=== PATIENT | female | born 1945 | race Caucasian/White ===

== ENCOUNTER 2023-10-19 12:19 | Emergency (ER) | payer MEDICARE, SELFPAY ==
--- NOTE | 2023-10-19 12:22 | XRR_ITS ---
PROCEDURE INFORMATION: Exam: XR Chest Exam date and time: 10/19/2023 12:44 PM Age: 78 years old Clinical indication: Shortness of breath; Patient HX: SOB and weakness x 1 wk; Additional info: Chest pain TECHNIQUE: Imaging protocol: Radiologic exam of the chest. Views: 1 view. COMPARISON: No relevant prior studies available. FINDINGS: Tubes, catheters and devices: Epidural electrodes seen in the midthoracic region. Lungs: Unremarkable. No consolidation. Pleural spaces: Unremarkable. No pleural effusion. No pneumothorax. Heart/Mediastinum: Unremarkable. No cardiomegaly. Bones/joints: [place] rightward midthoracic curvature. XR/XR chest 1V portable [id number] IMPRESSION: No acute findings.
--- NOTE | 2023-10-19 12:23 | ECG_ITS ---
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 Measurements Intervals [place] Rate: 87 P: 0 IN: 0 QRS: 26 QRSD: 93 T: 54 QT: 338 QTc: 407 Interpretive Statements ATRIAL FIBRILLATION MINIMAL ST DEPRESSION [0.025+ mV ST DEPRESSION] No previous ECG available for comparison Electronically Signed On 10-19-2023 16:51:19 CDT by Mark Duron M.D. [email or web address] Clinical Analyticsmercy health st. elizabeth youngstown hospitalCorefino/store/OM/[id number]
[2023-10-19 12:27] VITALS: BP 158/105; PULSE 76; RESP 23; TEMP 36.9; O2SAT 99; BMI 24.0
[2023-10-19 12:44] VITALS: BP 198/105; PULSE 87; RESP 23; O2SAT 99
[2023-10-19 13:39] LABS: Basophils # 0.1 10^3/uL (0.0-0.1); Basophils % 0.9 %; Eosinophils # 0.1 10^3/uL (0.0-0.8); Eosinophils % 0.9 %; Hematocrit 35.9 % (36-47); Lymphocytes # 1.6 10^3/uL (0.8-4.8); Lymphocytes % 14.6 %; Mean Corpuscular HGB Conc 34.5 g/dL (30-55); Mean Corpuscular Hemoglobin 30.8 pg (27-33); Mean Corpuscular Volume 89.1 fl (85-98); Mean Platelet Volume 9.8 fL (7.4-10.4); Monocytes # 0.8 10^3/uL (0.2-0.9); Monocytes % 7.2 %; Neutrophils # 8.41 10^3/uL (1.8-7.7); Neutrophils % 75.9 %; Nucleated Red Blood Cells % 0 %; Platelet Count 383 10^3/cmm (157-399); Red Blood Count 4.03 10^6/uL (3.85-5.65); Red Cell Distribution Width 14.2 % (12.1-15.1); White Blood Count 11.08 10^3/uL (3.29-11.43)
[2023-10-19 13:54] LABS: Lactic Sepsis W/Reflex 1.1 mmol/L (0.5-2.2)
[2023-10-19 13:56] LABS: Troponin(5th) Baseline 11 ng/L (0-10)
[2023-10-19 14:02] LABS: Alanine Aminotransferase 14 U/L (0-33); Albumin Level 4.3 g/dL (3.5-5.2); Alkaline Phosphatase 73 U/L (35-105); Anion Gap 20.4 (5-19); Aspartate Amino Transferase 17 U/L (0-32); Blood Urea Nitrogen 7 mg/dL (8-23); C Reactive Protein 3.4 mg/L (0.0-4.9); Calcium 9.7 mg/dL (8.5-10.5); Carbon Dioxide 18 mmol/L (22-29); Chloride 92 mmol/L (98-107); Creatinine Clr Calc Pharmacy 53.2684; Glucose 112 mg/dL (65-115); NT Pro B Type Natriuretic Pept 2969 pg/mL (0-450); Osmolality Calculated 263 mOsm/kg (285-295); Potassium 3.4 mmol/L (3.5-5.1); Sodium 127 mmol/L (136-145); Total Bilirubin 0.5 mg/dL (0.15-1.2); Total Protein 7.3 g/dL (6.6-8.7)
--- NOTE | 2023-10-19 14:19 | ED_ITS ---
HPI - SOB/Dyspnea 2 General: Chief Complaint: Shortness of Breath/Dyspnea Stated Complaint: sob,chest pain Time Seen by Provider: 10/19/23 12:20 History of Present Illness: HPI Narrative: 78-year-old female with history of hyper tension, neuropathy, depression, hyperlipidemia who presents emergency room with shortness of breath. She says she feels like she is having a hard time catching her breath. She was recently admitted to another hospital with hyponatremia. She is breathing a bit fast but otherwise vitals are normal. Slightly hypertensive. No hypoxemia on room air. No chest pain. No abdominal pain. No nausea or vomiting. No lower extremity swelling. Review of Systems 2 Narrative: Constitutional symptoms: Negative except as documented in HPI. Skin symptoms: Negative except as documented in HPI. Eye symptoms: Negative except as documented in HPI. ENMT symptoms: Negative except as documented in HPI. Respiratory symptoms: Negative except as documented in HPI. Cardiovascular symptoms: Negative except as documented in HPI. Gastrointestinal symptoms: Negative except as documented in HPI. Genitourinary symptoms: Negative except as documented in HPI. Musculoskeletal symptoms: Negative except as documented in HPI. Neurologic symptoms: Negative except as documented in HPI. Psychiatric symptoms: Negative except as documented in HPI. Endocrine symptoms: Negative except as documented in HPI. Physical Exam 2 Narrative: EXAM NARRATIVE: General: Alert, no acute distress. Skin: Warm, dry. Head: Normocephalic, atraumatic. Neck: Supple, trachea midline. Eye: Extraocular movements are intact. Ears, nose, mouth and throat: mucosa moist. Cardiovascular: Irregularly irregular, Normal peripheral perfusion. Respiratory: Lungs are clear to auscultation, respirations are non-labored, breath sounds are equal, Symmetrical chest wall expansion. Gastrointestinal: Soft, Nontender, Non distended Musculoskeletal: Normal ROM, no deformity. Neurological: Alert and oriented, No focal neurological deficit observed. Psychiatric: Cooperative, appropriate mood & affect. Course 2 Vital Signs: Vital signs: Vital Signs Temperature 98.5 F 10/19/23 12:27 Pulse Rate 69 10/19/23 16:15 Respiratory Rate 18 10/19/23 16:11 Blood Pressure 138/69 10/19/23 16:15 Pulse Oximetry 96 10/19/23 16:15 Oxygen Delivery Me thod Room Air 10/19/23 16:15 MDM - SOB/Dyspnea Medical Decision Making Differential diagnosis for patient with shortness of breath includes but is not limited to and based on the above HPI, review of systems and physical exam: Pneumonia. Bronchitis. Asthma or COPD with acute exacerbation. Acute coronary syndrome / NE. Pulmonary embolism. Anxiety. Congestive heart failure. Viral infections including influenza and Covid-19. Atrial fibrillation. Anxiety. Pleural effusion. Pneumothorax. Workup: Lab work, chest X-ray and EKG ordered to evaluate, rule in and rule out above pathologies EKG: Time 1229. Rate 87. Atrial fibrillation with controlled rate, No ST-T changes, no ectopy, This was reviewed and interpreted by myself the ER physician at 1232. Repeat EKG: At 1437. Rate 80. Atrial fibrillation with controlled rate, No ST- T changes, no ectopy, This was reviewed and interpreted by myself the ER physician at 1440. No changes from previous EKG. Chest x-ray: No acute process. No infiltrate. No pneumothorax. This was reviewed and interpreted by myself the ER physician. Lab review: This was reviewed and interpreted by myself the emergency room physician. No leukocytosis. No anemia. No renal failure.'s mild hyponatremia 127. Initial troponin is 11-second is 18. This is in a significant delta but is up a little bit. That combined with the hyponatremia I spoke with the patient and the family about observation in the hospital and they prefer to go home at this time. I think that is fairly reasonable. And they will return to the emergency room if symptoms worsen. I reviewed the patient's medical record. Reexamination: Discussed all findings with family. Discussed taking an extra dose of Coumadin and perhaps increasing her salt intake. She has not had any tachycardia here. No oxygen needs. No altered mental status. She has no increased work of breathing at discharge. Blood pressure had improved. Assessment and plan: Dyspnea Accelerated hypertension Hyponatremia Atrial fibrillation Chronic anticoagulation Subtherapeutic INR -Labetalol for blood pressure and some saline for her hyponatremia. -Extra dose of Coumadin tonight. - Discharged home - Discussed findings and plan with patient. Answered any questions. - All laboratory values were reviewed and interpreted personally by myself, the ER physician - All imaging was reviewed and interpreted personally by myself, the ER physician. - Evaluation and treatment of this problem were appropriate in the emergency setting Lab Data 10/19/23 13:22 10/19/23 13:22 Labs/Radiology: Radiology Impressions Chest X-Ray 10/19/23 12:22 IMPRESSION: No acute findings. Laboratory Results WBC 11.08 10^3/uL (3.29-11.43) 10/19/23 13:22 RBC 4.03 10^6/uL (3.85-5.65) 10/19/23 13:22 Hgb 12.40 g/dL (11.27-16.99) 10/19/23 13:22 Hct 35.9 % (36-47) L 10/19/23 13:22 MCV 89.1 fl (85-98) 10/19/23 13:22 MCH 30.8 pg (27-33) 10/19/23 13:22 MCHC 34.5 g/dL (30-55) 10/19/23 13:22 RDW 14.2 % (12.1-15.1) 10/19/23 13:22 Plt Count 383 10^3/cmm (157-399) 10/19/23 13:22 MPV 9.8 fL (7.4-10.4) 10/19/23 13:22 Neut % (Auto) 75.9 % 10/19/23 13:22 Lymph % (Auto) 14.6 % 10/19/23 13:22 [place] % (Auto) 7.2 % 10/19/23 13:22 Eos % (Auto) 0.9 % 10/19/23 13:22 Baso % (Auto) 0.9 % 10/19/23 13:22 Neut # (Auto) 8.41 10^3/uL (1.8-7.7) H 10/19/23 13:22 Lymph # (Auto) 1.6 10^3/uL (0.8-4.8) 10/19/23 13:22 [place] # (Auto) 0.8 10^3/uL (0.2-0.9) 10/19/23 13:22 Eos # (Auto) 0.1 10^3/uL (0.0-0.8) 10/19/23 13:22 Baso # (Auto) 0.1 10^3/uL (0.0-0.1) 10/19/23 13:22 Nucleated RBC % (auto) 0 % 10/19/23 13:22 Nucleated RBCs # 0.0 /100WBC 10/19/23 13:22 PT 18.10 SECONDS (12.1-14.9) H 10/19/23 16:05 INR 1.45 (0.8-1.2) H 10/19/23 16:05 APTT 29.8 SECONDS (23.9-36.7) 10/19/23 16:05 Sodium 127 mmol/L (136-145) L 10/19/23 13:22 Potassium 3.4 mmol/L (3.5-5.1) L 10/19/23 13:22 Chloride 92 mmol/L (98-107) L 10/19/23 13:22 Carbon Dioxide 18 mmol/L (22-29) L 10/19/23 13:22 Anion Gap 20.4 (5-19) H 10/19/23 13:22 BUN 7 mg/dL (8-23) L 10/19/23 13:22 Creatinine 0.4 mg/dL (0.5-0.9) L 10/19/23 13:22 GFR Calculation Not Reportable 10/19/23 13:22 Glucose 112 mg/dL (65-115) 10/19/23 13:22 Calculated Osmolality 263 mOsm/kg (285-295) L 10/19/23 13:22 Lactic Acid 1.1 mmol/L (0.5-2.2) 10/19/23 13:22 Calcium 9.7 mg/dL (8.5-10.5) 10/19/23 13:22 Total Bilirubin 0.5 mg/dL (0.15-1.2) 10/19/23 13:22 AST 17 U/L (0-32) 10/19/23 13:22 ALT 14 U/L (0-33) 10/19/23 13:22 Alkaline Phosphatase 73 U/L (35-105) 10/19/23 13:22 Troponin T Baseline 11 ng/L (0-10) H 10/19/23 13:22 Troponin T 120 Minute 18.05 ng/L (0-10) H 10/19/23 16:05 Delta Troponin T 7.05 ABS# (0-10) 10/19/23 16:05 C-Reactive Protein 3.4 mg/L (0.0-4.9) 10/19/23 13:22 NT-Pro-B Natriuret Pep 2969 pg/mL (0-450) H 10/19/23 13:22 Total Protein 7.3 g/dL (6.6-8.7) 10/19/23 13:22 Albumin 4.3 g/dL (3.5-5.2) 10/19/23 13:22 Globulin 3.0 g/dL (1.3-4.6) 10/19/23 13:22 All radiology interpretation(s) finalized by discharge Discharge Plan Discharge Patient Disposition: Home Clinical Impression: Dyspnea, Hyponatremia, Accelerated hypertension, Atrial fibrillation, Chronic anticoagulation, Subtherapeutic international normalized ratio (INR) Condition: Stable Prescriptions: No Action clonidine HCl 0.1 mg tablet 0.1 mg PO BID meloxicam 15 mg tablet 15 mg PO DAILY gabapentin 400 mg capsule 400 mg PO QID propranolol 10 mg tablet 5 mg PO BID famotidine 20 mg tablet 20 mg PO BID trazodone 100 mg tablet 200 mg PO BEDTIME amlodipine 10 mg tablet 10 mg PO DAILY simvastatin 20 mg tablet 20 mg PO DAILY warfarin 5 mg tablet See Rx Instructions .ROUTE .COMPLEX Rx Instructions: TAKE ONE TABLET BY MOUTH DAILY AND AN ADDITIONAL 1/2 TABLET (2.5MG) ON MONDAY, MONDAY, MONDAY AND MONDAY. oxycodone-acetaminophen 7.5-325 mg tablet 1 tab PO Q4H MDD 8 PER DAY PRN (Reason: Pain) lisinopril 40 mg tablet 40 mg PO DAILY sertraline 50 mg tablet 50 mg PO DAILY escitalopram oxalate 20 mg tablet 20 mg PO DAILY Discharge Orders: Discharge ED (Routine); Ordered 10/19/23 Ordered By: Esthela Christianson Referrals: Dariel Dunlap MD [Primary Care Provider] - Discharge Diet: Usual diet Discharge Activity: Increase activity as tolerated Patient Instructions: Opioid Safety, Pain Management Activity Restrictions/Additional Instructions: Please take an extra dose of your warfarin today. Thank you for choosing [facility] for your healthcare needs today. Please realize this is an emergency room and that we are providing you with a medical screening exam and this may not be complete and all inclusive of all the testing and or work up that you may need to determine your ailment or severity of your illness. You have been screened and evaluated and felt safe for discharge. Health conditions do change or evolve sometimes and as such it is important that you follow up with your Primary Doctor to be re checked, 3-5 days is a general good time frame for follow up. You are always welcome to return to the ED for re assessment if your symptoms are worsening or you have new concerns Coding Level of Care Code ED Dry Cleaning Teacher for Michael Cui
--- NOTE | 2023-10-19 14:23 | ECG_ITS ---
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 Measurements Intervals [place] Rate: 80 P: 0 [place]: 0 QRS: 14 QRSD: 113 T: 46 QT: 357 QTc: 412 Interpretive Statements ATRIAL FIBRILLATION MODERATE INTRAVENTRICULAR CONDUCTION DELAY [110+ ms QRS DURATION] Compared to ECG 10/19/2023 12:29:55 Intraventricular conduction delay now present ST (T wave) deviation no longer present Electronically Signed On 10-19-2023 16:51:46 CDT by Mark Duron M.D. [id number]
[2023-10-19 14:41] VITALS: BP 194/96; PULSE 79; O2SAT 98
--- NOTE | 2023-10-19 14:42 | PC.PHAR ---
PT STATES HAS NOT PICKED UP FAMOTIDINE YET FROM THE PHARMACY.
[2023-10-19] MEDS: sodium chloride 0.9% 500 ML 999 ML IV (14:44)
[2023-10-19] MEDS: labetalol 5 mg/mL SDV 20mL 20 MG IVP (16:08)
[2023-10-19 16:11] VITALS: RESP 18; O2SAT 98
[2023-10-19] MEDS: oxyCODONE-APAP 5-325 mg Tablet 1 TAB PO (16:11)
[2023-10-19] MEDS: gabapentin 400 mg Capsule PO (16:12)
[2023-10-19 16:15] VITALS: BP 138/69; PULSE 69; O2SAT 96
[2023-10-19 16:29] LABS: INR 1.45 (0.8-1.2); Partial Thromboplastin Time 29.8 SECONDS (23.9-36.7)
[2023-10-19 16:31] LABS: Troponin 5 2HR 18.05 ng/L (0-10); Troponin 5 2HR Delta 7.05 ABS# (0-10)
[2023-10-19 17:04] VITALS: BP 174/88; PULSE 77; RESP 18; TEMP 36.9; O2SAT 99
== END 2023-10-19 17:03 | disposition home or self-care (01) ==
PROVIDERS: Emergency Provider Emergency Medicine; PCP Family Medicine
DX: I48.91 Unspecified atrial fibrillation (principal); I10 Essential (primary) hypertension; E87.1 Hypo-osmolality and hyponatremia; R06.00 Dyspnea, unspecified; Z79.01 Long term (current) use of anticoagulants; R79.1 Abnormal coagulation profile; E78.5 Hyperlipidemia, unspecified
CPT/HCPCS: 36415; 71045; 80053; 83605; 83880; 84484; 85025; 85610; 85730; 86140; 87040; 93005; 96361; 96374; 99285; J3490; J7040